=== PATIENT | male | born 1960 | race Caucasian/White ===

== ENCOUNTER 2019-01-10 05:00 | Emergency (ER) | payer MEDICARE ==
[~2019-01-10] VITALS: Ht 172.7 cm; Wt 71.0 kg
[~2019-01-10 05:00] MED LIST: ASPIR-8181 MG OR; DIOVAN160 MG OR; FLEXERIL OR; LORCET PLUS1 TAB OR; NITROGLYCER0.4 MG SL; PLAVIX75 MG OR
[2019-01-10] MEDS ORDERED: BACLOFEN20 MG PO (05:20)
[2019-01-10] MEDS ORDERED: DOXYCYCLINE100 MG (05:21)
[2019-01-10 07:15] LABS: HEMATOCRIT 36.1 % (39.0-50.0); IMMATURE GRANULOCYTES 0.7 % (0.0-5.0); MEAN CELL VOLUME 84.1 fL CALC (80.0-100.0); MEAN CORPUSCULAR HGB CONC 32.1 g/L CALC (32.0-36.0); NEUT# 9.88 thou/uL (1.82-7.42); RED BLOOD COUNT 4.29 mill/uL (4.70-6.10)
[2019-01-10 07:19] LABS: HEMOGLOBIN 11.6 g/dl (14.0-18.0)
[2019-01-10 07:39] LABS: ALBUMIN 4.1 g/dL (3.2-5.0); ANION GAP 15 (6-22 (CALC)); BILIRUBIN, TOTAL 0.3 mg/dL (0.0-1.4); BUN 20 mg/dL (9-20); BUN/CREATININE RATIO 26 (12-20 (CALC)); CARBON DIOXIDE 23 mmol/l (22-30); CHLORIDE 105 mmol/l (95-108); CREATININE 0.8 mg/dL (0.7-1.3); GFR > 60 ML/MIN (>=60 (CALC)); GFR FOR AFR.AMER. > 60 ML/MIN (>=60 (CALC)); SGOT/AST 35 u/l (17-59); SODIUM 139 mmol/l (137-146); TOTAL PROTEIN 6.7 g/dL (6.3-8.2)
[2019-01-10 07:40] VITALS: BP 168/77
[2019-01-10 07:40] LABS: ALKALINE PHOSPHATASE 119 u/l (38-126)
== END 2019-01-10 07:35 | disposition short-term general hospital (02) ==
LOC: ED 05:00
PROVIDERS: Emergency Medicine
DX: M84.421A Pathological fracture, right humerus, initial encounter for fracture (principal)